=== PATIENT | male | born 1995 | race Caucasian/White ===

== ENCOUNTER 2019-05-03 19:20 | Emergency (ER) | payer OTHER ==
[~2019-05-03] VITALS: Ht 172.7 cm; Wt 56.7 kg
[2019-05-04 01:30] VITALS: BP 126/74
== END 2019-05-04 01:32 | disposition home or self-care (01) ==
LOC: ER 19:20
DX: F10.129 Alcohol abuse with intoxication, unspecified (principal); F17.210 Nicotine dependence, cigarettes, uncomplicated